=== PATIENT | female | born 1995 | race Caucasian/White ===

== ENCOUNTER 2018-08-01 10:56 | Outpatient (CLI) | payer OTHER ==
[2018-08-01 12:29] LABS: BHCG - Serum Negative (NEGATIVE); Pregs Control Background? CLEAR/WHITE (CLR/WHITE); Pregs Control Bar Appear? YES (CONTROL BAR)
[2018-08-01 12:37] LABS: ALT (SGPT) 19 U/L (8-55); AST (SGOT) 12 U/L (5-34); Albumin 4.6 g/dL (3.5-5.0); Alkaline Phosphatase 62 U/L (40-150); Bilirubin, Direct 0.2 mg/dL (0.1-0.3); Bilirubin, Total 0.5 mg/dL (0.2-1.2); Protein, Total 7.8 g/dL (6.0-8.3)
== END 2018-08-01 10:57 | disposition home or self-care (01) ==
LOC: LABBT 10:56
PROVIDERS: ATTEND Obstetrics & Gynecology
DX: Z01.812 Encounter for preprocedural laboratory examination (principal); N83.8 Other noninflammatory disorders of ovary, fallopian tube and broad ligament
CPT/HCPCS: 80076; 84703

== ENCOUNTER 2018-08-04 05:57 | Day surgery (SDC) | payer OTHER ==
[2018-08-01 11:38] VITALS: BMI 23.6
[2018-08-04] MEDS ORDERED: Gabapentin 300 MG CAP ONE (06:11)
[2018-08-04] MEDS ORDERED: Famotidine/PF 20 mg/2ml Vial ONE ×2 (06:11→06:47)
[2018-08-04] MEDS ORDERED: CeleCOXIB 100 MG CAP ONE (06:12)
[2018-08-04] MEDS ORDERED: Bupivacaine HCl 0.5%/Epinephrine 1:200,000/PF 30 ml Vial ONE (06:38)
[2018-08-04] MEDS ORDERED: Meperidine HCl/PF 25 MG/ML VIAL ONE (06:47)
[2018-08-04] MEDS ORDERED: Fentanyl 100 MCG/2 ML VIAL ONE (06:47)
[2018-08-04] MEDS ORDERED: Fentanyl 250 MCG/5 ML VIAL ONE (06:47)
[2018-08-04] MEDS ORDERED: Midazolam HCl 2 mg/2 ml Vial ONE (07:17)
[2018-08-04] MEDS ORDERED: Lidocaine 1% PF 5 ML VIAL ONE (09:18)
[2018-08-04] MEDS ORDERED: Rocuronium Bromide 10 MG/ML (10ML VIAL) ONE (09:18)
[2018-08-04] MEDS ORDERED: Glycopyrrolate 0.2 MG/ML 5 ML SYRINGE ONE (09:18)
[2018-08-04] MEDS ORDERED: PROPOFOL 200 MG/20 ML VIAL ONE (09:18)
[2018-08-04] MEDS ORDERED: Ketorolac Tromethamine 30 MG/ML VIAL ONE (09:18)
[2018-08-04] MEDS ORDERED: Ondansetron PF 4 MG/2 ML Vial ONE (09:18)
[2018-08-04] MEDS ORDERED: Metoclopramide HCl 10 MG/2 ML VIAL ONE (09:18)
[2018-08-04] MEDS ORDERED: Dexamethasone 20 MG/5 ML VIAL ONE (09:18)
[2018-08-04] MEDS ORDERED: Promethazine HCl 25 MG/ML VIAL ONE ×2 (10:27→11:54)
[2018-08-04] MEDS ORDERED: Morphine 4 MG/ML VIAL ONE (11:54)
--- NOTE | 2018-08-05 | OP ---
DATE OF PROCEDURE: 08/04/2018 PREOPERATIVE DIAGNOSES: Left ovarian cyst and pelvic pain. POSTOPERATIVE DIAGNOSES: Left ovarian cyst and right paratubal cyst. PROCEDURES PERFORMED: Robotic-assist single-site plus one left ovarian cystectomy and right paratubal cystectomy. ASSIST: Amada Bravo PA-C COMPLICATIONS: None. ESTIMATED BLOOD LOSS: 10 mL. URINE OUTPUT: 300 mL during the case. LAPAROSCOPIC FINDINGS: 1. Normal-appearing uterus. Normal-appearing left fallopian tube. Enlarged, approximate 6-cm left ovary with a dominant simple cyst and smaller hemorrhagic cyst. Right ovary normal appearing with approximate 2-cm right paratubal cyst. 2. Surgical site hemostatic. DESCRIPTION OF PROCEDURE: The patient was taken back to the OR with IV fluids running. When she was in the OR, she was placed in dorsal supine position. After the patient was asleep, she was placed in low dorsal lithotomy position. The abdomen and vagina were prepped and draped in normal fashion for gynecologic laparoscopy. Surgeons were gowned and gloved and scrubbed in. A Correia catheter was placed using sterile technique into the bladder. An operative speculum was placed into the vagina, and a single-tooth tenaculum was used to grasp the anterior lip of the cervix. Hulka clamp was gently placed into the uterus if needed for manipulation during the case, and a single-tooth tenaculum and an operative speculum were removed. Surgeon's gloves were changed, and attention was turned to the laparoscopic portion of the case. Beginning at the umbilical fold, 0.5% Marcaine was injected underneath the skin. A 12-mm skin incision was made with a scalpel. A Veress needle was gently placed through the skin incision in the abdominal cavity, which was insufflated without difficulty. A 12-mm trocar was placed through this incision into the peritoneal cavity without difficulty. The laparoscope was then placed through this incision with the above findings noted. At this time, the decision was made to proceed with single site versus traditional multiport robotic-assist laparoscopy. Prior to extending the umbilical incision, a 5-mm right upper quadrant assist port was placed from manipulation of the large cyst during the case. This port was placed under direct visualization in similar technique without complication. After the assist port was placed, the laparoscope was removed. The umbilical incision was extended to approximately 2 cm through the subcutaneous tissue to the fascia. The trocar was then removed, and a GelPOINT retractor was placed into the abdomen. Once GelPOINT retractor was placed into the incision, the GelPOINT was assembled with the laparoscopic trocar and the 2 robotic arms. This GelPOINT was then attached to the retractor, and the abdomen was insufflated. The robotic arms were docked, and the monopolar hook and [place] graspers were placed under direct visualization. With the patient in Trendelenburg position, beginning on the patient's left side, the left ovary was inspected, and the area consistent with a hemorrhagic cyst was noted as well as a larger area that appeared to be simple appearing. The portion of the cyst that was simple appearing was incised and drained. The hemorrhagic portion of the cyst was incised as well, and the blood was suctioned to decompress the cyst. The two cyst cornelius were removed together from the ovary using a combination of hydrodissection, blunt dissection, and monopolar cautery with a hook. Once the cyst wall was removed, it was not removed from the ovary, was removed from the operative field and sent for pathologic review. The remaining ovarian cortex was copiously irrigated and dried. Any areas of bleeding were controlled with the hook and bipolar cautery. After the cystectomy was completed on the patient's left side, the cyst on the patient's right fallopian tube between the mesosalpinx was inspected. It was noted to be outside of the fallopian tube, but encased within the mesosalpinx with a very fine layer of tissue. Finally, a tissue was incised with the monopolar hook, and the cyst was removed intact with hydrodissection. The cyst was removed as well and sent for pathologic review. There was no bleeding noted from the dissection site. The pelvis was copiously irrigated and suction dried. The ovary was inspected again on the patient's left side with no areas of bleeding noted. A layer of Tisseel hemostatic agent was placed within the bed of the ovary. All instruments were then removed from the abdomen. The gas was released from the abdomen. The fascia was reapproximated with Vicryl suture in a running fashion. The subcutaneous tissue of the umbilical incision as well as right upper quadrant was closed with 4-0 Monocryl. The right upper quadrant incision was dressed with Dermabond dressing, and the umbilical incision was dressed with a sterile Tegaderm with cotton ball within the umbilicus and antibiotic ointment on the incision. The Hulka clamp was removed from the uterus, and the cervix was inspected with no bleeding noted. The patient was cleaned and dried, taken out of lithotomy position, extubated, and to recovery room in good condition. Job ID: [id number]
== END 2018-08-04 14:33 | disposition home or self-care (01) ==
LOC: SDC 05:57 → EDSTATUS 10:30 → SDC 14:33
PROVIDERS: ATTEND Obstetrics & Gynecology
PROC: 0UB14ZZ Excision of Left Ovary, Percutaneous Endoscopic Approach (ICD-10-PCS; principal; 2018-08-04)
DX: D27.1 Benign neoplasm of left ovary (principal); N83.8 Other noninflammatory disorders of ovary, fallopian tube and broad ligament; G89.18 Other acute postprocedural pain; Z87.891 Personal history of nicotine dependence; Z88.0 Allergy status to penicillin
CPT/HCPCS: 36415; 80076; 84703; 86850; 86900; 86901; 88307; J0131; J0670; J0690; J1100; J1885; J2001; J2175; J2250; J2270; J2405; J2550; J2704; J2765; J3010; S0028